=== PATIENT | female | born 1935 | race Caucasian/White ===

== ENCOUNTER 2017-08-16 11:24 | Emergency (ER) | payer OTHER, MEDICARE ==
[~2017-08-16] VITALS: Ht 160 cm; Wt 69.7 kg
[2017-08-16] MEDS ORDERED: ASPIR 8181 M1 PO (13:36)
[2017-08-16] MEDS ORDERED: SIMVASTATIN40 MG PO (13:36)
[2017-08-16] MEDS ORDERED: ACYCLOVIR400 MG PO (13:36)
[2017-08-16] MEDS ORDERED: DYAZIDE, MA1 CAPSULE PO (13:36)
[2017-08-16] MEDS ORDERED: DAILY VALUE1 EACH PO (13:37)
[2017-08-16] MEDS ORDERED: PRESERVISION A1 EAC2 PO (13:38)
[2017-08-16] MEDS ORDERED: CALCIUM 500 MG1 EACH PO (13:38)
[2017-08-16] MEDS ORDERED: VITAMIN C1000 MG PO (13:38)
[2017-08-16] MEDS ORDERED: FISH OIL 1,2001 EAC3 PO (13:38)
[2017-08-16] MEDS ORDERED: VENTOLIN HFA18 GM IH (14:42)
[2017-08-16 15:00] VITALS: BP 143/63
== END 2017-08-16 15:01 | disposition home or self-care (01) ==
LOC: EME 11:24
DX: J10.1 Influenza due to other identified influenza virus with other respiratory manifestations (principal); Z87.891 Personal history of nicotine dependence; Z88.5 Allergy status to narcotic agent
CPT/HCPCS: 71046; 87502; 99281; 99284